=== PATIENT | male | born 1945 | race Caucasian/White ===

== ENCOUNTER → 2020-04-08 | Outpatient (CLI) | payer MEDICARE ==
[~2020-04-08] MED LIST: PROHANCE 279.3MG/ML 15ML VIAL As Ordered ONE; PROHANCE 279.3MG/ML 5ML VIAL As Ordered ONE
--- NOTE | 2020-05-20 07:23 | REP ---
MRI OF THE ABDOMEN WITH AND WITHOUT CONTRAST: HISTORY: Chronic pancreatitis. TECHNIQUE: Multiple sequences obtained in the axial and coronal planes prior to and following the intravenous administration of 20 cc ProHance. COMPARISON: There are no prior studies for comparison. FINDINGS: The visualized liver and spleen are unremarkable with no evidence of mass. The adrenal glands are normal. The pancreas demonstrates no mass or inflammation. There is no pancreatic duct dilatation. The patient has had a prior cholecystectomy. There is no intrahepatic or extrahepatic biliary dilatation. The common bile duct measures approximately 5 mm in maximum diameter. There are bilateral renal cysts. There are a few subcentimeter cysts in the lower pole of the right kidney. There is a dominant cyst in the mid-left kidney measuring approximately 4 cm in diameter. There are a few subcentimeter cysts in the left upper pole. There is no hydronephrosis. There is no adenopathy. No free fluid is seen. IMPRESSION: Status post cholecystectomy. Bilateral renal cysts. Otherwise no significant abnormalities. MTDD
== END ==
LOC: M RAD 12:30
PROVIDERS: ATTEND Family Medicine
DX: N28.1 Cyst of kidney, acquired (principal); K86.1 Other chronic pancreatitis; M54.16 Radiculopathy, lumbar region; Z90.49 Acquired absence of other specified parts of digestive tract; M51.36 Other intervertebral disc degeneration, lumbar region; M51.37 Other intervertebral disc degeneration, lumbosacral region; M48.00 Spinal stenosis, site unspecified
CPT/HCPCS: 72149; 74183; A9576

== ENCOUNTER 2025-04-01 16:35 | Emergency (ER) | payer MEDICARE ==
[~2025-04-01] VITALS: Ht 182.9 cm; Wt 102.4 kg
[2025-04-01] MEDS: TETANUS/DIPHTH/ACEL. PERTUSSIS 0.5 ML SYR IM.IMMUN ONE (17:33)
[2025-04-01 18:17] VITALS: O2SAT 97
[2025-04-01 18:45] VITALS: BP 126/64; TEMP 97.6; O2SAT 95
== END 2025-04-01 18:54 | disposition home or self-care (01) ==
LOC: M ED 16:35
DX: S00.00XA Unspecified superficial injury of scalp, initial encounter (principal); S00.93XA Contusion of unspecified part of head, initial encounter; S20.419A Abrasion of unspecified back wall of thorax, initial encounter; W17.89XA Other fall from one level to another, initial encounter; M48.00 Spinal stenosis, site unspecified; Y92.009 Unspecified place in unspecified non-institutional (private) residence as the place of occurrence of the external cause; Y93.89 Activity, other specified; Y99.9 Unspecified external cause status; Z23 Encounter for immunization